=== PATIENT | male | born 1940 | race Caucasian/White ===

== ENCOUNTER → 2016-07-25 | Outpatient (CLI) | payer OTHER ==
[2016-07-25 10:04] LABS: BLOOD UREA NITROGEN 21 mg/dl (7-18); BUN/CREATININE RATIO 16.1 (10-20)
== END | disposition home or self-care (01) ==
LOC: C.LAB 08:15
PROVIDERS: ATTEND Urology
DX: N40.1 Benign prostatic hyperplasia with lower urinary tract symptoms (principal); R33.9 Retention of urine, unspecified

== ENCOUNTER → 2017-03-12 | Outpatient (CLI) | payer OTHER ==
--- NOTE | 2017-03-12 10:04 | DIAGNOSTIC IMAGING REPORT ---
[facility] CLINICAL HISTORY: Nephrolithiasis. COMPARISON STUDY: [facility] January 18, 2016. FINDINGS: Note is made of a suspected 5 mm left renal calculus which is unchanged. Pelvic calcifications likely reflect phleboliths and vascular calcifications. A 2.1 cm round calcified structure projecting over the right upper quadrant favors a gallstone. IMPRESSION: 1. No change in a 5 mm left renal calculus. No ureteral calculi. 2. Suspected 2.1 cm calcified gallstone. Electronically signed by: Jakub Sanchez M.D. 03/12/2017 10:03 AM Dictated Date/Time: 03/12/2017 10:01 AM
== END | disposition home or self-care (01) ==
LOC: C.RAD 09:16
PROVIDERS: ATTEND Urology
DX: N20.0 Calculus of kidney (principal); R93.2 Abnormal findings on diagnostic imaging of liver and biliary tract